=== PATIENT | male | born 1980 | race Two or more races ===

== ENCOUNTER 2024-04-08 09:16 | Day surgery (SDC) | payer OTHER ==
[2024-04-06 11:06] LABS: Urine Bacteria None Seen /hpf (None Seen); Urine WBC None Seen /hpf (0 - 3)
[2024-04-06 11:14] LABS: Basophils # (auto) 0.1 10 ^3/uL (0-0.2); Eosinophils # (auto) 0.3 10 ^3/uL (0-0.8); Eosinophils % (auto) 2.9 % (0.0-7.0); Hematocrit 44.6 % (41.0-53.0); Hemoglobin 14.8 g/dL (13.5-17.5); Lymphocytes # (auto) 2.7 10 ^3/uL (0.4-5.4); Lymphocytes % (auto) 25.1 % (10.0-50.0); Mean Corpuscular Hemoglobin 29.1 pg (28.0-32.0); Mean Corpuscular Hgb Conc. 33.1 g/dL (32.0-36.0); Mean Corpuscular Volume 87.9 fL (80.0-100.0); Monocytes # (auto) 0.8 10 ^3/uL (0-1.3); Neutrophils # (auto) 6.7 10 ^3/uL (1.6-8.6); Platelet Count (auto) 238 10^3/uL (140-450); Red Blood Cells 5.08 10^6/uL (4.5-5.90); Red Cell Distribution Width 13.2 % (11.8-14.3); White Blood Cell 10.6 10^3/uL (4.4-10.8)
[2024-04-06 11:19] LABS: Urine Blood Negative /uL (Negative); Urine Clarity Clear (Clear); Urine Color Light-Yellow (Yellow); Urine Protein, UAD Negative (Negative); Urine Specific Gravity 1.016 (1.001-1.035); Urine Urobilinogen Normal (Negative); Urine pH 5.5 (5.0-9.0)
[2024-04-06 11:28] LABS: INR 1.03 (0.9-1.15); Partial Thromboplastin Time 31.3 SEC (24.5-34.5); Prothrombin Time 10.9 sec (9.3-11.8)
[2024-04-06 11:54] LABS: Alanine Aminotransferase 41 U/L (7-40); Alkaline Phosphatase 95 U/L (46-116); Anion Gap 5 (5-15); Aspartate Aminotransferase 15 U/L (13-40); BUN/Creatinine Ratio 7.8 (10.0-20.0); Bilirubin, Total 0.7 mg/dL (0.2-1.0); Blood Urea Nitrogen 9 mg/dL (9-23); Calcium 10.5 mg/dL (8.7-10.4); Carbon Dioxide 29 mmol/L (20-31); Chloride 105 mmol/L (98-107); Glucose 106 mg/dL (74-106); Potassium 4.3 mmol/L (3.5-5.1); Sodium 139 mmol/L (136-145); Total Protein 7.7 g/dL (5.7-8.2)
[~2024-04-08] VITALS: Ht 175.3 cm; Wt 107.5 kg
[~2024-04-08 09:16] MED LIST: ACET-1304 PO; CYCL-837 PO; NABU-74 PO
[2024-04-08] MEDS ORDERED: SUCCINYLCHOLINE CHLORIDE 20 MG/ML 10ML VIAL IV ONE (09:17)
[2024-04-08] MEDS ORDERED: KETAMINE 50mg/ML 1ml syringe ONE ×2 (13:48→14:00)
[2024-04-08] MEDS ORDERED: GLYCOPYRROLATE 0.2 MG/ML 1ML VIAL ONE (13:49)
[2024-04-08] MEDS ORDERED: PROPOFOL 10 MG/ML 20 ML IV ONE ×2 (13:49→14:00)
[2024-04-08] MEDS ORDERED: MEPERIDINE HCL (50 MG/ML) 1 ML VIAL ONE (13:49)
[2024-04-08] MEDS ORDERED: fentaNYL CITRATE 100 MCG/2 ML VL ONE ×2 (13:49→14:00)
[2024-04-08] MEDS ORDERED: DexAMETHasone SOD PHOS 10MG/1ML VIAL INJ ONE (13:49)
[2024-04-08] MEDS ORDERED: ePHEDrine SULFATE 50 MG/ML AMP ONE (13:49)
[2024-04-08] MEDS ORDERED: LIDOCAINE 2% (LOCAL ANESTH.) PF 5ml SDV ONE (13:49)
[2024-04-08] MEDS ORDERED: ONDANSETRON HCL 4 MG/2 ML VIAL ONE ×2 (13:49→14:00)
[2024-04-08] MEDS ORDERED: MIDAZOLAM HCL 2MG/2ML 2ml VIAL (1mg/ml) ONE ×2 (13:49→14:00)
[2024-04-08] MEDS ORDERED: KETOROLAC TROMETH 30 MG/ML 1ML VIAL ONE (13:49)
[2024-04-08] MEDS ORDERED: LIDOCAINE 1% INJ PF 5ML AMP ONE (14:00)
[2024-04-08] MEDS ORDERED: SODIUM CHLORIDE LOCK 10 ML ONE (14:00)
[2024-04-08] MEDS ORDERED: ROCURONIUM 10MG/ML 10ML VIAL IV ONE (14:00)
[2024-04-08] MEDS ORDERED: MEPERIDINE HCL (25 MG/ML) 1ML VIAL ONE (14:04)
[2024-04-08] MEDS: ceFAZolin 2 GM/D5W100ml 100 ML IV ONE (14:05)
[2024-04-08] MEDS: BUPIVACAINE W/ EPINEPH 0.5% MPF 30ML VIAL IJ ONE (14:39)
[2024-04-08] MEDS: LIDOCAINE 1% HCL (LOCAL ANESTH.) INJ 20ML MDV ONE (14:39)
[2024-04-08] MEDS ORDERED: ACE3T PO (15:17)
[2024-04-08] MEDS ORDERED: ONDANSETRON HCL 4 MG/2 ML VIAL IV ONE (15:45)
[2024-04-08] MEDS: HYDROmorphone HCL 2 MG/ML VL/or syr IV PRN (15:45)
[2024-04-08] MEDS ORDERED: HYDROmorphone HCL 2 MG/ML VL/or syr ONE (15:50)
== END 2024-04-08 16:30 | disposition home or self-care (01) ==
LOC: SUR 09:16
PROVIDERS: ATTEND Surgery
DX: K40.90 Unilateral inguinal hernia, without obstruction or gangrene, not specified as recurrent (principal); E66.01 Morbid (severe) obesity due to excess calories; G47.33 Obstructive sleep apnea (adult) (pediatric); Z68.35 Body mass index [BMI] 35.0-35.9, adult; Z98.890 Other specified postprocedural states
CPT/HCPCS: 36415; 49505; 80053; 81001; 85025; 85610; 85730; 86850; 86900; 86901; J0330; J1100; J1885; J2003; J2175; J2250; J2405; J2704; J3010